=== PATIENT | male | born 1995 | race Caucasian/White ===

== ENCOUNTER 2020-03-08 21:22 | Emergency (ER) | payer OTHER ==
--- NOTE | 2020-03-08 21:48 | ER Document Report ---
ED Medical Screen (RME) - General Chief Complaint: Chest Pain Stated Complaint: CHEST PAIN/LEFT SIDE PAIN Time Seen by Provider: 03/08/20 21:43 Mode of Arrival: Ambulatory Information source: Patient Notes: 25-year-old male presented to ED for chest pain since this morning. He states he did have a prior problem in the past with consuming caffeine and then having chest pain and heaviness. He states he came very concerned today because he started having chest pain with tingling and numbness down his left arm. He states he had a [employer] glass caffeine drink and within 20 minutes he was having chest pain. He states he had had it on an empty stomach so he thought that was the reason it was hurting but it is lingered all day. He states now his left chest just feels heavy but he still having the tingling and numbness down his left arm. He states he does not smoke drink or use any illicit drugs. He states [facility] told him that one time that he had high blood pressure but that is gone down and is also told him to watch his cholesterol that it was a little high but he is never been on any medications for either. I have greeted and performed a rapid initial assessment of this patient. A comprehensive ED assessment and evaluation of the patient, analysis of test results and completion of medical decision making process will be conducted by an additional ED providers. Physical Exam - Vital signs Vitals: Temp Pulse Resp BP Pulse Ox 98.0 F 59 L 12 126/75 H 99 03/08/20 21:36 03/08/20 21:36 03/08/20 21:36 03/08/20 21:36 03/08/20 21:36 Course - Vital Signs Vital signs: Temp Pulse Resp BP Pulse Ox 98.0 F 59 L 12 126/75 H 99 03/08/20 21:36 03/08/20 21:36 03/08/20 21:36 03/08/20 21:36 03/08/20 21:36
--- NOTE | 2020-03-08 22:26 | RADIOLOGY REPORT (SQ) ---
XR CHEST 2 VIEWS HISTORY: Chest pain heaviness tingling down left arm. COMPARISON: None. FINDINGS: The heart size is within normal limits. There is no pulmonary vascular congestion. No consolidation, pleural effusion, or pneumothorax is seen. The bony structures are preserved. IMPRESSION: No evidence of acute cardiopulmonary disease.
--- NOTE | 2020-03-08 23:17 | EKG REPORT ---
SEVERITY:- NORMAL ECG - SINUS RHYTHM : Confirmed by: Joseph Cesar MD 08-Mar-2020 23:16:57
[2020-03-08 23:31] LABS: ABSOLUTE EOSINOPHILS # (AUTO) 0.3 10^3/uL (0.0-0.6); ABSOLUTE LYMPHOCYTES (AUTO) 2.4 10^3/uL (0.5-4.7); ABSOLUTE MONOCYTES (AUTO) 0.5 10^3/uL (0.1-1.4); ABSOLUTE NEUT (AUTO) 2.6 10^3/uL (1.7-8.2); BASOPHILS % (AUTO) 0.8 % (0-2); EOSINOPHILS % (AUTO) 4.4 % (0-6); HEMATOCRIT 46.5 % (37.9-51.0); HEMOGLOBIN 16.2 g/dL (13.5-17.0); LYMPHOCYTES % (AUTO) 41.4 % (13-45); MEAN CORPUSCULAR HEMOGLOBIN 29.2 pg (27.0-33.4); MEAN CORPUSCULAR HGB CONC 34.8 g/dL (32.0-36.0); MEAN CORPUSCULAR VOLUME 84 fl (80-97); MONOCYTES % (AUTO) 9.2 % (3-13); PLATELET COUNT 198 10^3/uL (150-450); RED BLOOD COUNT 5.53 10^6/uL (4.35-5.55); RED CELL DISTRIBUTION WIDTH 12.9 % (11.5-14.0); SEGMENTED NEUTROPHILS % (AUTO) 44.2 % (42-78); TOTAL CELLS COUNTED % (AUTO) 100 %; WHITE BLOOD COUNT 5.8 10^3/uL (4.0-10.5)
[2020-03-08] MEDS ORDERED: LIDOCAINE 2% VISCOUS SOLN 15 ML UDCUP PO ONE (23:41)
[2020-03-08] MEDS ORDERED: METOCLOPRAMIDE HCL ORAL SOLN 10 MG/10 ML UDCUP PO ONE (23:41)
[2020-03-08] MEDS ORDERED: MAG HYDROX/AL HYDROX/SIMETH SUSP 30 ML UDCUP PO ONE (23:41)
--- NOTE | 2020-03-08 23:44 | ER Document Report ---
ED Cardiac - General Chief Complaint: Chest Pain Stated Complaint: CHEST PAIN/LEFT SIDE PAIN Time Seen by Provider: 03/08/20 21:43 Mode of Arrival: Ambulatory Notes: CHIEF COMPLAINT: Chest pain HPI: 25-year-old male who is otherwise reasonably healthy presenting for evaluation of Chest pain with some left arm numbness. It began after drinking a caffeinated drink today. States he has noticed he has had chest pain issues in the past with caffeine use. Follows normally at the [facility], states 6 months ago there was a question of whether his blood pressure or cholesterol might be high but states they were not definitive about this. States that he does workout and when he does he does not have chest pain or shortness of breath beyond what he thinks he should. States the discomfort today has been fairly constant t hroughout the entire day. ROS: See HPI - all other systems were reviewed and are otherwise negative Constitutional: no fever Eyes: no drainage, no blurred vision ENT: no runny nose, no sore throat Cardiovascular: + chest pain Resp: no SOB, no cough GI: no vomiting, no diarrhea, no abdominal pain : no dysuria Integumentary: no rash Allergy: no hives Musculoskeletal: no extremity pain or swelling Neurological: no numbness/tingling, no weakness MEDICATIONS: I agree with the patient medications as charted by the RN. ALLERGIES: I agree with the allergies as charted by the RN. PAST MEDICAL HISTORY/PAST SURGICAL HISTORY: Reviewed and agree as charted by RN. SOCIAL HISTORY: Reviewed and agree as charted by RN. FAMILY HISTORY: No significant familial comorbid conditions directly related to patient complaint EXAM: Reviewed vital signs as charted by RN. CONSTITUTIONAL: Alert and oriented and responds appropriately to questions. Well-appearing; well-nourished HEAD: Normocephalic; atraumatic EYES: PERRL; Conjunctivae clear, sclerae non-icteric ENT: normal nose; no rhinorrhea; moist mucous membranes; pharynx without lesions noted, no uvula edema or deviation, no tonsillar hypertrophy, phonation normal NECK: Supple without meningismus; non-tender; no cervical lymphadenopathy, no masses CARD: RRR; no murmurs, no clicks, no rubs, no gallops; symmetric distal pulses RESP: Normal chest excursion without splinting or tachypnea; breath sounds clear and equal bilaterally; no wheezes, no rhonchi, no rales, pulse oximetry 99% on room air not hypoxic ABD/GI: Normal bowel sounds; non-distended; soft, non-tender, no rebound, no guarding; no palpable organomegaly or masses. BACK: The back appears normal and is non-tender to palpation, there is no CVA tenderness EXT: Normal ROM in all joints; non-tender to palpation; no cyanosis, no effusions, no edema SKIN: Normal color for age and race; warm; dry; good turgor; no acute lesions noted NEURO: Moves all extremities equally; Motor and sensory function intact PSYCH: The patient's mood and manner are appropriate. Grooming and personal hygiene are appropriate. MDM: 25-year-old male who is otherwise healthy with left chest pain with some left arm numbness today. The numbness has resolved at this point. No abdominal pain on exam. He is fairly low risk for ACS. His EKG normal sinus rhythm with a ventricular rate of 65, interpreted by emergency department physicians. No other ectopy. AR of 132. In this age group it is more likely that he has reflux or gastritis especially given the onset of his symptoms with energy drinks, coffee or caffeinated beverages. He does report a family history of coronary artery issues in his mother and his brother. Will obtain 1 set of screening enzymes given that his discomfort is been present all day if negative anticipate discharge home with referral to cardiology for outpatient evaluation which may include echocardiogram or stress test - Related Data Allergies/Adverse Reactions: No Known Allergies Allergy (Unverified 03/09/20 00:06) Past Medical History - General Information source: Patient - Social History Smoking Status: Never Smoker Chew tobacco use (# tins/day): No Frequency of alcohol use: None Drug Abuse: None Family History: CAD Physical Exam - Vital signs Vitals: Temp Pulse Resp BP Pulse Ox 98.0 F 59 L 12 126/75 H 99 03/08/20 21:36 03/08/20 21:36 03/08/20 21:36 03/08/20 21:36 03/08/20 21:36 Course - Re-evaluation Re-evalutation: 03/09/20 00:26 Patient's lab work does not show any acute abnormalities low suspicion for ACS, no indication for second troponin given the length of time of symptoms. Will discharge home to follow-up with cardiology outpatient with return instructions - Vital Signs Vital signs: Temp Pulse Resp BP Pulse Ox 98.0 F 59 L 12 126/75 H 98 03/08/20 21:43 03/08/20 21:36 03/08/20 21:36 03/08/20 21:36 03/08/20 23:21 - Laboratory Result Diagrams: 03/08/20 23:16 03/08/20 23:16 Discharge - Discharge Clinical Impression: Chest pain Qualifiers: Chest pain type: other chest pain Qualified Code(s): R07.89 - Other chest pain; R07.8 - Other chest pain Condition: Stable Disposition: HOME, SELF-CARE Additional Instructions: Your lab work today did not show acute emergent abnormalities. Follow-up closely with cardiology for outpatient evaluation which may include stress test or echocardiogram for further evaluation of your symptoms. Take the Protonix as prescribed avoid acidic foods, drinks, caffeinated products Prescriptions: Pantoprazole Sodium [Protonix [address] Tablet] 20 mg PO DAILY #30 tablet. [facility]errals: [facility] [Primary [facility]] - Follow up as needed VIKTORIA ARZOLA MD [ACTIVE STAFF] - Follow up as needed
[2020-03-08 23:47] LABS: ALBUMIN 4.8 g/dL (3.5-5.0); ALKALINE PHOSPHATASE 64 U/L (38-126); ANION GAP 9 (5-19); ASPARTATE AMINO TRANSFERASE 22 U/L (17-59); BILIRUBIN,TOTAL 0.6 mg/dL (0.2-1.3); BLOOD UREA NITROGEN 16 mg/dL (7-20); CALCIUM 9.6 mg/dL (8.4-10.2); CARBON DIOXIDE 29 mmol/L (22-30); CHLORIDE 102 mmol/L (98-107); CREATINE KINASE 57 U/L (55-170); GLUCOSE 90 mg/dL (75-110); POTASSIUM 4.2 mmol/L (3.6-5.0); TOTAL PROTEIN 7.6 g/dL (6.3-8.2)
[2020-03-09 00:55] VITALS: BP 121/84
== END 2020-03-09 00:54 | disposition home or self-care (01) ==
LOC: ER 21:22
DX: R07.9 Chest pain, unspecified (principal); R20.0 Anesthesia of skin; Z82.49 Family history of ischemic heart disease and other diseases of the circulatory system
CPT/HCPCS: 93005; 99285; 36415; 82550; 83735; 85025; 80053; 84484; 71046; 93010; J3490